=== PATIENT | female | born 1945 | race Caucasian/White ===

== ENCOUNTER 2018-06-18 05:54 | Inpatient (IN) ==
[2018-06-13 17:44] LABS: Appearance,Urine CLEAR; Bilirubin,Urine NEG (NEG); Color,Urine YELLOW; Glucose,Urine (UA) NEGATIVE (NEG); Leukocyte Esterase,Urine NEG /uL (NEG); Protein,Urine NEG (NEG); Specific Gravity,Urine 1.015 (1.000-1.035); Urine Blood NEG mg/dL (<0.03); Urobilinogen,Urine NEG (NEG)
[2018-06-13 19:30] LABS: Blood Urea Nitrogen 10 mg/dl (8-23)
[2018-06-13 19:43] LABS: Basophils # (Auto) 0 K/mcL (0.0-0.3); Basophils % (Auto) 0.4 % (0.0-2.0); Eosinophils # (Auto) 0.1 K/mcL (0.0-0.7); Eosinophils % (Auto) 0.8 % (0.0-7.0); Granulocytes % (Auto) 67.7 % (38.0-78.0); Lymphocytes # (Auto) 2.2 K/mcL (1.5-4.8); Lymphocytes % (Auto) 24.8 % (15.5-49.0); Mean Cell Volume 84.8 fL (80.0-100.0); Monocytes # (Auto) 0.6 K/mcL (0.1-0.9); Monocytes % (Auto) 6.3 % (1.0-12.0); Platelet Count 279 K/mcL (140-440); RBC 5.48 M/mcL (4.00-5.20); Red Cell Distribution Width 16.4 % (11.5-14.5)
[2018-06-18] MEDS ORDERED: ceFAZolin 1 GM VIAL IV SCH (07:00)
[2018-06-18] MEDS ORDERED: PREGABALIN 75 MG CAPSULE PO SCH (07:00)
[2018-06-18] MEDS ORDERED: CELECOXIB 200 MG CAPSULE PO SCH (07:00)
[2018-06-18] MEDS ORDERED: oxyCODONE 10 MG TAB.ER.12H PO SCH (07:00)
[2018-06-18] MEDS ORDERED: LIDOCAINE HCL/PF 100 MG/5 ML SYRINGE IV ONE (09:45)
[2018-06-18] MEDS ORDERED: ONDANSETRON 4 MG/2 ML VIAL IV ONE (09:45)
[2018-06-18] MEDS ORDERED: DEXAMETHASONE 10 MG/ML VIAL IV ONE (09:45)
[2018-06-18] MEDS ORDERED: fentaNYL 250 MCG/5 ML VIAL IV ONE (09:45)
[2018-06-18] MEDS ORDERED: MIDAZOLAM 5 MG/5 ML VIAL IV ONE (09:45)
[2018-06-18] MEDS ORDERED: TRANEXAMIC ACID 1,000 MG/10 ML VIAL IV ONE ×2 (09:45→11:47)
[2018-06-18] MEDS ORDERED: SUCCINYLCHOLINE 20 MG/ML ML IV ONE (09:45)
[2018-06-18] MEDS ORDERED: PROPOFOL 200 MG/20 ML VIAL IV ONE (09:45)
[2018-06-18] MEDS ORDERED: HYDROmorphone 2 MG/ML VIAL IV ONE (09:45)
[2018-06-18] MEDS ORDERED: BUPIVACAINE W/EPI 0.5% 50 ML VIAL IJ ONE (10:55)
[2018-06-18] MEDS ORDERED: NALOXONE HCL 0.4 MG/ML VIAL IV PRN (11:07)
[2018-06-18] MEDS ORDERED: MEPERIDINE 25 MG/ML SYRINGE IV PRN (11:07)
[2018-06-18] MEDS ORDERED: ONDANSETRON 4 MG/2 ML VIAL IV PRN ×2 (11:07→11:47)
[2018-06-18] MEDS ORDERED: diphenhydrAMINE 50 MG/ML VIAL IV PRN (11:07)
[2018-06-18] MEDS ORDERED: PROMETHAZINE 25 MG/ML VIAL IV PRN (11:07)
[2018-06-18] MEDS ORDERED: ACETAMINOPHEN 1,000 MG/100 ML BOTTLE IV ONE (11:07)
[2018-06-18] MEDS ORDERED: LACTATED RINGERS 250 ML IV PRN (11:07)
[2018-06-18] MEDS ORDERED: IPRATROPIUM/ALBUTEROL 3 ML AMPUL.NEB NEB PRN (11:07)
[2018-06-18] MEDS ORDERED: fentaNYL 100 MCG/2 ML VIAL IV PRN (11:07)
[2018-06-18] MEDS ORDERED: BENZOCAINE/MENTHOL 1 LOZENGE PO PRN ×2 (11:07→11:47)
[2018-06-18] MEDS ORDERED: FLUMAZENIL 0.1 MG/ML ML IV PRN (11:07)
[2018-06-18] MEDS ORDERED: LACTATED RINGERS 1,000 ML IV SCH (11:15)
--- NOTE | 2018-06-18 11:46 | Brief Operative Note ---
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
[2018-06-18] MEDS ORDERED: MAGNESIUM HYDROXIDE 30 ML ORAL.SUSP PO PRN (11:47)
[2018-06-18] MEDS ORDERED: HYDROmorphone 2 MG/ML VIAL IV PRN (11:47)
[2018-06-18] MEDS ORDERED: BISACODYL 10 MG SUPP.RECT PR PRN (11:47)
[2018-06-18] MEDS ORDERED: FLEETS ADULT ENEMA PR PRN (11:47)
[2018-06-18] MEDS ORDERED: POLYETHYLENE GLYCOL 3350 17 GM PACKET PO PRN (11:47)
[2018-06-18] MEDS ORDERED: LORazepam 2 MG/ML VIAL IV ONE (12:45)
[2018-06-18] MEDS ORDERED: LORazepam 2 MG/ML VIAL ONE (12:49)
--- NOTE | 2018-06-18 13:01 | Operative Note ---
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 PROCEDURE PERFORMED: 1. Removal of right total shoulder prosthesis glenoid and humeral component. 2. Revision to a right reverse total shoulder arthroplasty placing a Tornier size 2 cemented humeral stem, a standard tray with a +6 poly insert, a +3 lateralized glenosphere baseplate with a 36 standard glenosphere. SURGEON: Pepe Friedman M.D. SERVICES MANAGER: Neil Stone PA-C. ANESTHESIA: General. DRAINS: None. SPECIMENS: Removed humeral and glenoid components. BLOOD LOSS: 100 mL. COMPLICATIONS: None. POSTOPERATIVE CONDITION: Stable. INDICATIONS FOR SURGERY: This is a 72-year-old female who within the last year or two had undergone a right total shoulder arthroplasty. At the time, she had an intact rotator cuff. She did initially reasonably well from the surgery but then had increased weakness and pain. X-rays showed proximal migration of the humeral head and physical exam showed pseudoparalysis. FINDINGS AT SURGERY: She did have a nonfunctioning cuff. Post-procedure showed stable implant with satisfactory tension. PROCEDURE IN DETAIL: The patient had been seen preoperatively and informed consent had been obtained after discussion of risks and benefits of surgery. Risks including, but not limited to, bleeding, possibly requiring transfusion; infection, possibly requiring implant removal and prolonged IV antibiotics; injury to nerves, blood vessels, other surrounding structures; anesthetic risks; incomplete or no resolution of symptoms; stiffness; weakness; pain; possible dislocation; possibility of fracture; possibility of needing further surgery. She understood and wished to proceed. Correct operative site was marked and then patient was taken to the operating room. General anesthesia induced. She was carefully positioned in the beach chair position and pressure points carefully padded. Ioban was placed over all skin surfaces and then her previous deltopectoral incision was made with scalpel through skin and subcutaneous tissue. Irrisept was irrigated. We then dissected down to the deltopectoral interval. Her cephalic vein was minimally present due to her previous surgery. We then dissected down onto the humerus and had to work through scar tissue to develop the subdeltoid space. Zhao deltoid retractor was placed. At this point, we visualized really no significant cuff. There was just a thin layer of scar tissue over the humeral component. We identified the lateral edge of the conjoined tendon and placed a blue handle retractor underneath and then removed the scar tissue off of the humeral head and suture material from the prior surgery. We then, after exposing the humeral component, used an oscillating saw to cut around the surface and then this was easily removed. We then started preparing the humeral canal, first using a canal finder and then broaching up to a size 2. We placed a cup protector on this and then we subluxed this posteriorly. We then worked to expose the glenoid and released capsule around very carefully around the inferior glenoid. Once we had adequate exposure, we used the osteotome to remove the glenoid component. We then used a drill to drill the three peripheral holes to try and remove the cement. We then used a curet to clean the holes as much as possible. We then irrigated with Irrisept, and then used the cephalad 10-degree tilt guide placed at the inferior margin of the glenoid and drilled our guide pin. We used a depth gauge which was a 35. We then drilled the central portion with a drill and then we removed the guide pin. We did ream prior to drilling the central post down to freshened bone. We then opened the implant. We irrigated Irrisept and then after a minute pulse lavaged with saline. We advanced this down with the central screw until it was against bone. We then drilled and placed our superior and inferior locking screws. Anterior screw hole did not get enough bone for purchase posteriorly, though we did get a good nonlocking screw. Once we had these three placed, we placed a standard glenosphere trial and then re-exposed the proximal humerus and removed the cup plate. We placed a standard tray with a standard poly insert. We reduced the shoulder. It had very good tension. However, when we went to dislocate the shoulder, there was fracture of the posterior portion of the proximal humerus. At this point then we removed the humeral trial. The posterior fracture was fragmented too small to cable, so we re-exposed the glenosphere. We removed the glenosphere trial, opened a standard glenosphere. We irrigated Irrisept, after a minute pulse lavaged with saline, and then the glenosphere was impacted onto the Loyd taper and the screw tightened. We then re-exposed the proximal humerus. We ended up broaching up to a 3 and so we chose a 2 cemented stem. We placed a cement restrictor down the canal and then irrigated Irrisept. The implant was assembled on the back table and then antibiotic cement mixed. We then cemented the humeral canal and pressurized with my finger below the fracture, and then the implant was impacted down on to the proximal humerus. The humerus was held absolutely still until cement had fully hardened. We then inspected for any excess cement. The shoulder was then reduced. We went ahead and irrigated Irrisept, after a minute pulse lavaged with saline, then closed the deltopectoral interval with #1 Vicryl running stitch. A final Irrisept irrigation was done, after a minute final pulse lavage, and then 2-0 Monocryl for subcutaneous. Ashley were used for skin. Xeroform and sterile dressings were applied. Arm was placed in a Donjoy immobilizer. The patient was awakened, extubated, and transferred to recovery in stable condition. BJOlivier:marilia Job ID: [id number] Doc ID: [id number] Pepe Friedman MD
--- NOTE | 2018-06-18 13:48 | XRay Report ---
HISTORY: Postop after revision of the right shoulder prosthesis FINDINGS: There is a well-positioned recently inserted reverse shoulder prosthesis. No fracture is present. There is gas in soft tissues around the joint. Right lung volume is small and there may be a diffuse infiltrates throughout the right lung. IMPRESSION: Well-positioned right shoulder prosthesis. Possible widespread infiltrates throughout the right lung. If the patient has respiratory symptoms, chest x-ray would be recommended. Interpreted and Authenticated by: Hamlet Finn 06/18/18
[2018-06-18] MEDS ORDERED: WARFARIN 5 MG TABLET PO SCH (14:00)
[2018-06-18] MEDS: ceFAZolin 1 GM VIAL IV SCH (17:52)
[2018-06-18] MEDS: 0.9 % SODIUM CHLORIDE 10 ML SYRINGE IV SCH ×2 (17:54→23:25)
[2018-06-18] MEDS: oxyCODONE/APAP 5/325MG TABLET PO PRN (18:44)
[2018-06-18] MEDS: 0.9 % SODIUM CHLORIDE 1,000 ML IV SCH ×2 (18:52→23:25)
[2018-06-18] MEDS: DOCUSATE SODIUM 100 MG CAPSULE PO SCH (20:05)
[2018-06-18] MEDS ORDERED: SENNOSIDES 1 TABLET PO SCH (21:00)
[2018-06-19] MEDS: ceFAZolin 1 GM VIAL IV SCH (01:16)
[2018-06-19] MEDS: oxyCODONE/APAP 5/325MG TABLET PO PRN ×3 (04:14→13:55)
[2018-06-19] MEDS: 0.9 % SODIUM CHLORIDE 10 ML SYRINGE IV SCH ×2 (05:05→14:25)
[2018-06-19] MEDS ORDERED: OMEPRAZOLE 20 MG CAPSULE PO SCH (07:30)
--- NOTE | 2018-06-19 07:49 | Discharge Summary ---
Providers - Providers Patient information: Note initiated : 06/19/18 at 7:46 am Service Date, if different from initiated Date: [] Patient: Mónica Corbin 72 y/o F admitted on 06/18/18 for Right Reverse Total Shoulder Arthroplasty. Chief Complaint: [] Discharge date: 06/19/18 Hospitalization Hospital course: Pt was admitted for a R Reverse TSA revision from a TSA. Pt underwent the procedure on the day of admission. Pt stayed one night on the floor for IV pain meds. IV abx, and PT. Pt will attend out-pt PT. Discharge diagnosis: R shoulder failed TSA due to rotator cuff tear Exam - Exam Clean and dry: Yes Weight bearing status: none Ortho Discharge - TSA - Patient Instructions Diet: Regular Diet Activity: activity as tolerated Total Shoulder Protocol: Leave immobilizer in place except for bathing and ROM. Abduction pillow. Continue to wear sling until seen by physician. Codman Pendulum : These exercises use momentum produced by your body to move your shoulder joint. Bend your knees and shift your weight to your front leg, then back, allowing your arm to swing in the same directions. Using the same technique, alternately shift your weight between your right and left legs, allowing your arm to swing from side to side. These exercises are also performed in counterclockwise and clockwise circular motions. Typically these exercises are performed several times per day, for a set number repetitions or minutes, such as 20 times in a row or 5 minutes at a time. Dressing Care: May shower in 2 days - Follow Up Plan Follow Up Appointments: Schuyler Stone PA-C [Physician Pipe Stripper] - 07/03/18 9:30 am Disposition: Home, Self-Care Prognosis: Good Rehab Potential: Good Overall status at discharge: patient is progressing back to baseline - Orders For Discharge Prescriptions: HYDROcodone/ACETAMINOPHEN [Talmo 10-325 Tablet] 1 - 2 tab PO Q4 #75 tab Pending Studies Resuscitation Status Full Code Diet Regular Diet Start SatJun 18 1149 Docusate Sodium (Colace) 100 mg PO BID LIZZIE Last Admin: 06/18/18 20:05 Dose: 100 mg Documented by: PAWEL Sodium Chloride (Sodium Chloride 0.9%) 1,000 mls @ 100 mls/hr IV .Q10H LIZZIE Last Infusion: 06/19/18 02:47 Dose: 0 mls/hr Documented by: Admin: 06/18/18 23:25 Dose: Not Given Documented by: Admin: 06/18/18 18:52 Dose: 100 mls/hr Documented by: [email or web address] Oxycodone/Acetaminophen (Percocet 5-325 Mg) 0 tab PO Q4HP PRN PRN Reason: PAIN LEVEL 3-6 Last Admin: 06/19/18 04:14 Dose: 1 tab Documented by: Admin: 06/18/18 18:44 Dose: 1 tab Documented by: PAWEL Senna (Senokot) 2 tab PO HS [facility] Last Admin: 06/18/18 20:05 Dose: 2 tab Documented by: PAWEL Sodium Chloride (Saline Flush) 10 ml IV Q8 [facility] Last Admin: 06/19/18 05:05 Dose: 10 ml Documented by: Admin: 06/18/18 23:25 Dose: Not Given Documented by: Admin: 06/18/18 17:54 Dose: Not Given Documented by: [email or web address] Warfarin Sodium (Coumadin) 5 mg PO [id number] [facility] Last Admin: 06/18/18 18:44 Dose: 5 mg Documented by: PAWEL Shift Summary 06/19/18 02:49 Shift Summary by Waylon Carmichael Pt arrived to floor from PACU at 1238 yesterday after completing a right reverse total shoulder after a failed total shoulder from one year ago. Pt received 1mg Ativan postop for agitation and moving right arm about with immobilizer on. Pt remained sleepy until shift change. Pt has been alert and oriented all shift. Vitals signs stable. Hx of emphysema, pt has chronic I/E wheezes. Received a total of 1800 of IV fluid post op. Has voided x1 to this point in shift for 400mL. Pt has stress incontinence. Pt ambulates with need of one assist and gait belt due to unsteadiness and overall weakness post surgery. PT stopped by at shift change yesterday, got pt up to chair at bedside for meal. Will return to work with patient today for hopeful ambulation of greater distance. Pt has had minimal complaints of pain, has received one Percocet so far this shift, and will anticipate another with 0400 vitals. Pt is very pleasant, funny, and has been a pleasure to provide care for. Further updates will follow at bedside as necessary. Thank you. Initialized on 06/19/18 02:49 - END OF NOTE
[2018-06-19] MEDS: 0.9 % SODIUM CHLORIDE 1,000 ML IV SCH (07:59)
[2018-06-19] MEDS ORDERED: METOPROLOL SUCCINATE 50 MG TAB.XL.24H PO SCH (09:00)
[2018-06-19] MEDS ORDERED: TRIAMTERENE/HYDROCHLOROTHIAZID 1 TABLET PO SCH (09:00)
[2018-06-19] MEDS ORDERED: VENLAFAXINE 75 MG CAP.XL.24H PO SCH (09:00)
[2018-06-19] MEDS: DOCUSATE SODIUM 100 MG CAPSULE PO SCH (09:13)
[2018-06-19] MEDS ORDERED: WARFARIN 7.5 MG TABLET PO SCH (14:00)
== END 2018-06-19 15:00 | disposition home or self-care (01) | DRG 483 ==
LOC: MEDSUR 05:54
PROVIDERS: ADMIT Orthopaedic Surgery; ATTEND Orthopaedic Surgery